=== PATIENT | male | born 1960 | race Caucasian/White ===

== ENCOUNTER 2023-12-21 06:34 | Day surgery (SDC) | payer BC, SELFPAY ==
[2023-12-21] VITALS (9 sets, daily range): BP systolic 125–158; BP diastolic 58–82; BMI 29.5
--- NOTE | 2023-12-21 06:59 | HP.FOC2 ---
Focused History & Physical
Chief Complaint
HPI:
Chief Complaint: Right inguinal hernia
HPI / Indication for Planned Procedure: Patient is a 63-year-old male recently seen in outpatient surgical evaluation after he had been following the right inguinal hernia expectantly for about a year. It had increased in size to the point that he
had an ache in the area prompting surgical follow-up. Physical examination confirmed a reducible right inguinal hernia for which he presents for operative correction.
Relevant Past Medical History: Other (IBS, TRINY with CPAP, depression, hyperlipidemia, lumbar DDD, cervical DDD, hemochromatosis carrier, left hip osteoarthritis BPH)
Relevant Social History: Negative
Relevant Family History: Negative
Relevant Past Surgical History: Positive for (Mohs, lumbar back procedures and epidural injections)
Review of Systems
Review of Pertinent Systems: All Systems Negative
Medication
See Medication form for detailed medications: Yes
Medication List (including Herbals & OTC):
Fish Oil 1 cap PO DAILY 12/18/23
Vitamin D3 1 tab PO DAILY 12/18/23
escitalopram oxalate 10 mg tablet (Lexapro) 10 mg PO DAILY 12/18/23
estbijwdlda-hwa-xgmgbzirk-vitC capsule (Glucosamine Complex-MSM capsule) 1 cap PO DAILY 12/18/23
tamsulosin 0.4 mg capsule (Flomax) 0.8 mg PO HS 12/18/23
Medications Reviewed: Yes
Allergies and Reactions
Patient has Allergies: Yes
Noted Allergies and Reactions:
Allergy/AdvReac Type Severity Reaction Status Date / Time
dexamethasone Allergy Swelling, Verified 12/18/23 11:25
Hives
lidocaine Allergy Swelling, Verified 12/18/23 11:25
Hives
Pertinent Physical Exam
All Other Systems: Negative
Head/Neck: Normal
Lungs: Normal
Heart: Normal
Abdomen: Other (Reducible right inguinal hernia)
Extremities: Normal
Neurological: Normal
Diagnosis / Assessment
63-year-old male presenting for scheduled operative correction symptomatic right inguinal hernia
Plan / Procedure
Robotic assisted laparoscopic repair right inguinal hernia with mesh
Anesthesia/Sedation to be done by Anesthesia Provider: Yes
--- NOTE | 2023-12-21 07:17 | W.SUR.PREOP ---
Pre-Operative Surgical Note
-
I have examined this patient prior to the performance of the scheduled procedure.
The patient's condition is unchanged from the time of the current History and
Physical and the patient is able to undergo the scheduled procedure.
[2023-12-21] MEDS: TYLENOL 1000 MG PO (07:19)
[2023-12-21] MEDS: NORMOSOL-R 1000 IV (07:30)
--- NOTE | 2023-12-21 09:09 | W.IMMPOSTOP ---
Addendum entered and electronically signed by Wilfredo Pruitt MD 12/21/23 09:18:
#[id number]
Original Note:
Surgical Immed Post Op Note
-
Primary Surgeon: Edmond
Assisting Surgeon: Isak TAVERAS
Pre-op Diagnosis: Right inguinal hernia
Post-op Diagnosis: Right inguinal hernia; direct + indirect
Procedure Performed: RAL YENNY repair right inguinal hernia with mesh; 3D max large mid weight
Anesthesia Type: GETA
Specimen / Cultures: None
Estimated Blood Loss: 4 mL
Complications: None immediate
Operative Findings: Moderate size direct inguinal hernia. Pseudosac reduced and secured to Jovani's ligament with 2-0 Vicryl. Indirect inguinal hernia with large lipomatous protrusion of cord reduced and excised to facilitate mesh placement. 3D
max large mid weight mesh repair secured to Jovani's ligament x 2 with 2-0 Vicryl. No additional notable intra-abdominal findings.
[2023-12-21] MEDS: DILAUDID 0.5 MG IV (09:29)
== END 2023-12-21 11:00 | disposition home or self-care (01) ==
LOC: SDS 06:34
PROVIDERS: ATTENDING PHYSICIAN Surgery
DX: K40.90 Unilateral inguinal hernia, without obstruction or gangrene, not specified as recurrent (principal)
CPT/HCPCS: 49650; C1781

== ENCOUNTER → 2024-08-22 12:47 | Outpatient (REF) | payer SELFPAY | LOC: RAD 12:47 | PROVIDERS: ATTENDING PHYSICIAN Family Medicine; REFERRING PHYSICIAN Internal Medicine Cardiovascular Disease | DX: E78.2 Mixed hyperlipidemia (principal) | CPT/HCPCS: 75571 ==

== ENCOUNTER → 2025-01-02 12:58 | Outpatient (REF) | payer BC, SELFPAY | LOC: MRI 3T 12:58 | PROVIDERS: ATTENDING PHYSICIAN Otolaryngology; FAMILY PHYSICIAN Family Medicine | DX: H90.A22 Sensorineural hearing loss, unilateral, left ear, with restricted hearing on the contralateral side (principal) | CPT/HCPCS: 70553; A9575 ==

== ENCOUNTER → 2025-07-18 11:58 | Outpatient (REF) | payer BC, SELFPAY | LOC: RAD 11:58 | PROVIDERS: ATTENDING PHYSICIAN Nurse Practitioner Family; FAMILY PHYSICIAN Family Medicine | DX: R10.84 Generalized abdominal pain (principal) | CPT/HCPCS: 74018 ==